=== PATIENT | male | born 1985 | race Caucasian/White ===

== ENCOUNTER → 2018-12-24 | Outpatient (CLI) | payer OTHER ==
--- NOTE | 2018-12-24 15:26 | Diagnostic Imaging Report ---
INDICATION: Chronic low back pain. TIME OF EXAM: 3:14 PM COMPARISON: No prior studies are available for comparison. FINDINGS: Curvature and alignment is normal. Vertebral body heights are maintained. No acute compression fracture seen. There is some degenerative disc disease with disc space narrowing L1-2 as well as L4-5 and L5-S1 levels. IMPRESSION: Mild lumbar spondylosis. No acute bony abnormality is detected. Dictated by: Dictated on workstation # [id number]
== END ==
LOC: RAD 15:04
PROVIDERS: ATTEND Family Medicine
DX: M47.816 Spondylosis without myelopathy or radiculopathy, lumbar region (principal)
CPT/HCPCS: 72100

== ENCOUNTER → 2020-05-27 | Outpatient (CLI) | payer OTHER ==
--- NOTE | 2020-05-27 09:52 | Diagnostic Imaging Report ---
INDICATION: MID LOW BACK PAIN. TECHNIQUE: AP, Lateral and Swimmers imaging of the thoracic spine CORRELATION STUDY: None FINDINGS: The thoracic spinal alignment appearing unremarkable. Vertebral body heights and disc spaces are fairly well maintained. No fracture or malalignment is seen. The cervical thoracic junction somewhat limited in visualization. No suggestion for acute bony abnormality. IMPRESSION: No radiographic evidence for acute abnormality of the thoracic spine. Dictated by: Dictated on workstation # [id number]
--- NOTE | 2020-05-27 10:00 | Diagnostic Imaging Report ---
INDICATION: No known injury, history of back pain. TECHNIQUE: AP, Lateral and Spot imaging of the lumbar spine CORRELATION STUDY: None FINDINGS: The lumbar spinal curvature and alignment are within normal limits. Vertebral body heights are maintained. No fracture or malalignment is seen. Moderate asymmetric disc space narrowing L5-S1 level. Some osseous encroachment on neural foramina would be difficult to exclude. IMPRESSION: No radiographic evidence for acute bony abnormality of the lumbar spine. Asymmetric disc space narrowing L5-S1 level. Dictated by: Dictated on workstation # [id number]
== END ==
LOC: RAD 08:20
PROVIDERS: ATTEND Family Medicine
DX: M48.07 Spinal stenosis, lumbosacral region (principal)
CPT/HCPCS: 72072; 72100